=== PATIENT | female | born 1940 | race Caucasian/White ===

== ENCOUNTER → 2018-12-11 | Outpatient (CLI) | payer MEDICARE, BC, OTHER ==
--- NOTE | 2018-12-11 12:01 | REP ---
BILATERAL LOWER EXTREMITY DUPLEX DOPPLER VENOUS ULTRASOUND WITH EVALUATION FOR VENOUS REFLUX: Real-time compression and duplex Doppler interrogation of the bilateral lower extremity deep venous systems is performed. Bilaterally, the common femoral, superficial femoral, and popliteal veins are fully compressible with transducer pressure and demonstrate normal spontaneous and phasic flow without evidence of deep venous thrombosis. A small amount of chronic appearing thrombus is seen centrally in the left greater saphenous vein which appears small in size. Evaluation for venous reflux is performed bilaterally. On the right, reflux is seen in the common femoral vein and throughout the superficial femoral and popliteal veins. There is an anterior accessory greater saphenous vein present which demonstrates reflux as well. Reflux is demonstrated in the standing position. Right greater saphenous vein is surgically absent. Lesser saphenous vein measures 1 mm with no reflux. On the left, there is reflux in the common femoral vein and central as well as distal superficial femoral vein and to a minimal extent in the left popliteal vein. There is reflux in a left anterior accessory greater saphenous vein. There is reflux throughout the greater saphenous vein, centrally near the saphenofemoral junction duration is 7.5 seconds with diameter 5 mm, in the mid thigh level duration is 8.7 seconds with diameter 4 mm, and peripherally at the level of the knee, duration is 7.3 seconds with diameter 2 mm. There is no reflux in the lesser saphenous vein which measures 1 mm. Reflux is greater in the deep veins in the standing position. Large perforating vein is seen at the level of the left popliteal vein with flow from the deep vein toward the superficial vein. Electronically Signed by Nehemiah Durand MD 12/13/2018 10:54 A
== END ==
LOC: M RAD 09:11
PROVIDERS: ATTEND Surgery Vascular Surgery
DX: I82.412 Acute embolism and thrombosis of left femoral vein (principal); I87.2 Venous insufficiency (chronic) (peripheral); I87.311 Chronic venous hypertension (idiopathic) with ulcer of right lower extremity
CPT/HCPCS: 11042; 93970; G0463